=== PATIENT | male | born 1925 | race Caucasian/White ===

== ENCOUNTER → 2016-11-12 | Outpatient (CLI) | payer OTHER | LOC: HYPER 07:10 | DX: K61.1 Rectal abscess (principal); K68.11 Postprocedural retroperitoneal abscess; K62.7 Radiation proctitis; K62.4 Stenosis of anus and rectum; I10 Essential (primary) hypertension; Z85.46 Personal history of malignant neoplasm of prostate; Z86.73 Personal history of transient ischemic attack (TIA), and cerebral infarction without residual deficits ==

== ENCOUNTER → 2016-11-26 | Outpatient (CLI) | payer OTHER | LOC: HYPER 07:14 | DX: T81.89XD Other complications of procedures, not elsewhere classified, subsequent encounter (principal); S31.829D Unspecified open wound of left buttock, subsequent encounter; K61.1 Rectal abscess; K68.11 Postprocedural retroperitoneal abscess; K62.7 Radiation proctitis; K62.4 Stenosis of anus and rectum; I10 Essential (primary) hypertension; Z85.46 Personal history of malignant neoplasm of prostate; Z86.73 Personal history of transient ischemic attack (TIA), and cerebral infarction without residual deficits; Y83.8 Other surgical procedures as the cause of abnormal reaction of the patient, or of later complication, without mention of misadventure at the time of the procedure ==

== ENCOUNTER → 2016-12-01 | Outpatient (CLI) | payer OTHER | LOC: HYPER 09:36 | DX: T81.89XD Other complications of procedures, not elsewhere classified, subsequent encounter (principal); K61.1 Rectal abscess; K68.11 Postprocedural retroperitoneal abscess; K62.7 Radiation proctitis; K62.4 Stenosis of anus and rectum; I10 Essential (primary) hypertension; Z86.73 Personal history of transient ischemic attack (TIA), and cerebral infarction without residual deficits; Z85.46 Personal history of malignant neoplasm of prostate; Z72.89 Other problems related to lifestyle; Y83.8 Other surgical procedures as the cause of abnormal reaction of the patient, or of later complication, without mention of misadventure at the time of the procedure ==

== ENCOUNTER → 2016-12-15 | Outpatient (CLI) | payer OTHER | LOC: HYPER 07:06 | DX: T81.89XD Other complications of procedures, not elsewhere classified, subsequent encounter (principal); I10 Essential (primary) hypertension; Z85.46 Personal history of malignant neoplasm of prostate; Z86.73 Personal history of transient ischemic attack (TIA), and cerebral infarction without residual deficits; Z72.89 Other problems related to lifestyle; Y83.8 Other surgical procedures as the cause of abnormal reaction of the patient, or of later complication, without mention of misadventure at the time of the procedure ==